=== PATIENT | female | born 1990 | race African-American/Black ===

== ENCOUNTER 2017-01-29 07:01 | Emergency (ER) | payer OTHER ==
[~2017-01-29] VITALS: Ht 160 cm; Wt 50.0 kg
[~2017-01-29 07:01] MED LIST: AMOXICILLIN500 MG PO; DEPO-PROVER150 MG/M1 IM; IBUPROFEN600 MG PO; MEDDOSEPAK PO; OMEPRAZOLE20 MG PO
[2017-01-29 08:34] LABS: INFLUENZA A NONE DETECTED (NONE DETECT); INFLUENZA B NONE DETECTED (NONE DETECT)
[2017-01-29] MEDS ORDERED: AMOXICILLIN500 M2 PO (08:38)
[2017-01-29 08:50] VITALS: BP 110/70
== END 2017-01-29 08:54 | disposition home or self-care (01) | DRG 153 ==
LOC: ED 07:01
PROVIDERS: Family Medicine
DX: J02.0 Streptococcal pharyngitis (principal); J02.9 Acute pharyngitis, unspecified